=== PATIENT | female | born 1950 | race Asian ===

== ENCOUNTER 2022-01-08 11:08 | Emergency (ER) | payer MEDICARE, MEDICAID ==
[~2022-01-08] VITALS: Ht 157.5 cm; Wt 64.1 kg
[2022-01-08 11:15] VITALS: BP 131/72; PULSE 65; TEMP 97.3
[2022-01-08] MEDS ORDERED: LIPITOR 10MG10 MG PO (11:23)
[2022-01-08] MEDS ORDERED: NORCO 325 MG-51 TAB PO (12:49)
== END 2022-01-08 13:05 | disposition home or self-care (01) ==
LOC: COL.ER 11:08
DX: S52.502A Unspecified fracture of the lower end of left radius, initial encounter for closed fracture (principal); W01.0XXA Fall on same level from slipping, tripping and stumbling without subsequent striking against object, initial encounter